=== PATIENT | male | born 1965 | race Caucasian/White ===

== ENCOUNTER 2024-07-23 14:03 | Outpatient (AMB) | payer MEDICAID, SELFPAY ==
[2024-07-23 14:14] VITALS: BP 144/89; PULSE 83; RESP 19; TEMP 36.6; O2SAT 98; BMI 29.1
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
--- NOTE | 2024-07-23 14:16 | XR_ITS ---
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
== END 2024-07-23 14:26 | disposition home or self-care (01) ==
LOC: HODSRG 14:03
PROVIDERS: PCP Physician Assistant; Referring Provider Physician Assistant; Supervising Provider Orthopaedic Surgery Adult Reconstructive Orthopaedic Surgery; Visit Provider Orthopaedic Surgery Adult Reconstructive Orthopaedic Surgery
DX: M17.0 Bilateral primary osteoarthritis of knee (principal); M25.562 Pain in left knee; M25.561 Pain in right knee
CPT/HCPCS: 73564; 99204; G0463

== ENCOUNTER 2024-08-09 08:37 | Outpatient (AMB) | payer MEDICAID, SELFPAY ==
[2024-08-09 08:59] VITALS: BP 145/89; PULSE 79; RESP 19; TEMP 36.1; O2SAT 98; BMI 30.1
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
== END 2024-08-09 09:07 | disposition home or self-care (01) ==
LOC: HODSRG 08:37
PROVIDERS: PCP Physician Assistant; Referring Provider Physician Assistant; Supervising Provider Orthopaedic Surgery Adult Reconstructive Orthopaedic Surgery; Visit Provider Orthopaedic Surgery Adult Reconstructive Orthopaedic Surgery
DX: M17.0 Bilateral primary osteoarthritis of knee (principal); M25.562 Pain in left knee; M25.561 Pain in right knee
CPT/HCPCS: 99213; G0463